=== PATIENT | male | born 1970 | race Caucasian/White ===

== ENCOUNTER → 2017-02-25 | Outpatient (CLI) | payer OTHER ==
--- NOTE | 2017-02-25 18:15 | DIAGNOSTIC IMAGING REPORT ---
R UPPER EXT JOINT WITHOUT CLINICAL HISTORY: 46 years-old Male with RIGHT ELBOW PAIN. Acute right elbow pain status post trauma COMPARISON: None. TECHNIQUE: Multiplanar, multi sequence MRI of the right elbow was performed without intravenous contrast. FINDINGS: LATERAL COLLATERAL LIGAMENT: The lateral collateral ligaments including the lateral ulnar collateral ligament are intact and unremarkable in appearance. COMMON EXTENSOR TENDON: Linear area of increased T2 signal involving the cephalad portion of the common extensor tendon measures up to 5 x 2 mm nicely seen on image 12 series 9 and image 25 series 7 suggesting low-grade partial-thickness tear. Additionally, there is low-grade partial-thickness tearing of the insertional fibers of the common extensor tendon measuring up to 6 mm in length as seen on image 24 series 7. No full-thickness tear or retraction. No surrounding soft tissue edema to suggest acute injury. Moderate common extensor tendinosis. MEDIAL COLLATERAL LIGAMENT: The ulnar collateral ligament, including the anterior and posterior bands, is intact and unremarkable in appearance. COMMON FLEXOR TENDON: The common flexor origin from the medial epicondyle is normal in appearance. No evidence of tendinosis or tear to suggest medial epicondylitis. MUSCLES: The biceps and brachialis tendon insertions are normal in appearance. No evidence of tear or strain. The triceps tendon insertion on the olecranon is also unremarkable in appearance. ULNAR NERVE: The ulnar nerve is normally located in the ulnar sulcus and is unremarkable in appearance. BONE MARROW: Bone marrow is unremarkable without evidence of fracture, marrow contusion or marrow occupying lesion. There is focal intermediate grade chondral thinning with adjacent subcortical edema involving the medial and lateral portions of the posterior trochlea as seen on image 13 series 10 and also on image 9 series 9 . No intra-articular loose body. Trace joint effusion. SOFT TISSUES: Periarticular soft tissues are normal. IMPRESSION: 1. Low-grade partial-thickness tearing and moderate tendinosis of the insertional common extensor tendon as above without full-thickness tear, retraction or significant surrounding soft tissue edema. 2. Mild chondromalacia and subcortical edema within the trochlea as above. 3. Biceps tendon appears intact. 4. Trace joint effusion. The above report was generated using voice recognition software. It may contain grammatical, syntax or spelling errors. Electronically signed by: Ash Lo M.D. 02/25/2017 6:13 PM Dictated Date/Time: 02/25/2017 3:47 PM
== END | disposition home or self-care (01) ==
LOC: C.MRIBC 14:55
PROVIDERS: ATTEND Nurse Practitioner Family
DX: M25.521 Pain in right elbow (principal)